=== PATIENT | male | born 1965 | race Caucasian/White ===

== ENCOUNTER 2017-03-05 16:39 | Inpatient (IN) | payer OTHER ==
[~2017-03-05] VITALS: Ht 198.1 cm; Wt 90.0 kg
--- OUTSIDE RECORDS SUMMARY | 2017-03-05 16:43 | XMS REPORT | Continuity of Care Document ---
Author Author [facility] Address Unknown Phone Unavailable Allergies Medications Problems Date Dx Coded Attending Type Code Diagnosis Diagnosed By 06/24/2013 KATELYN NEWELL MD V70.5 PREEMPLOYMENT/PRESCHOOL EXAM Procedures Code [place] [id number] UA LONG DIP 06/24 Results Encounters ACCT No. Visit Date/Time Discharge Status Pt. Type Provider Facility Loc./Unit Complaint [id number] 06/24/2013 08:28:00 06/24/2013 23: 59:59 CLS Outpatient KATELYN NEWELL MD
[2017-03-05] MEDS ORDERED: RIVA15TA PO (17:28)
[2017-03-05] MEDS ORDERED: ENAL20TA PO (17:28)
[2017-03-05 18:00] VITALS: BP 164/80
[2017-03-05] MEDS ORDERED: ACETAMINOPHEN 500 MG TAB (TYLENOL) PO PRN (18:15)
[2017-03-05] MEDS: RIVAROXABAN 15 MG TABLET (XARELTO) PO SCH (19:34)
[2017-03-05] MEDS ORDERED: RIVAROXABAN 20 MG TABLET (XARELTO) PO SCH (21:00)
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
[2017-03-06 06:01] VITALS: BP 117/69
[2017-03-06] MEDS: RIVAROXABAN 15 MG TABLET (XARELTO) PO SCH ×2 (07:57→16:44)
[2017-03-06] MEDS: ENALAPRIL 10 MG (VASOTEC) TAB PO SCH (07:58)
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
[2017-03-06] MEDS: NICOTINE PATCH REMOVAL TP SCH (08:56)
[2017-03-06] MEDS: NICOTINE 21 MG (NICODERM) PATCH TD SCH (08:56)
--- NOTE | 2017-03-06 10:22 | PM&R Post Admission Assessment ---
Post Admission Physician Asses The preadmission screen agrees with the post admission assessment that the patient is a good candidate for inpatient rehabilitation. The patient will have a comprehensive program of inpatient rehabilitation with a goal of maximizing level of functional independence prior to discharge home with [facility]. The patient will have PT/OT ninety minutes per day, each discipline , five days a week for gait, strengthening, conditioning, balance, ADLs, any patient/family/caregiver training as necessary. Speech therapy to do cognitive assessment and treat as indicated. Rehabilitation nursing to assist with bowel, bladder, skin, wound care, medication administration, pain management. Arch Pad Cementer to assist with discharge planning, community reentry. SCD's for DVT prophylaxis. He appears to be well motivated to participate in three hours of therapy a day. He should be able to tolerate three hours of therapy a day from a medical standpoint. He should benefit from the three hours of therapy a day. He has a reasonable discharge plan, reasonable discharge rehabilitation goals and a supportive family. He has various comorbidities that need to be closely monitored with medications and treatments adjusted on a daily basis as needed. These include: HTN Smoking cessation DVT RT leg on OAC Barriers to discharge for this patient who had been independent prior to this are for him to be modified independent to supervision for ADLs and mobility skills prior to discharge home with HHC and family, so as to lessen the burden of the caregivers. Risks for this patient include: 1. Fall 2. Fracture 3. DVT 4. Pulmonary embolism 5. Recurrent DVT 6. Skin breakdown 7. Contractures 8. Poorly controlled pain 9. Urinary retention 10. UTI 11. Respiratory infection 12. Aspiration 13. Poorly controlled HTN Estimated Length of Stay: 7 days Prognosis: Rehab prognosis appears good for goal of discharge home with HHC and family modified independent to supervision for ADLs and mobility skills. DYLAN OVERTON MD Mar 06, 2017 10:22
[2017-03-06] MEDS ORDERED: RIVA15TA PO (10:33)
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
--- NOTE | 2017-03-06 13:17 | ST Cognitive Linguistic Eval ---
Speech Evaluation-General Medical Diagnosis pelvic fx Onset Date: Mar 05, 2017 Therapy Diagnosis Therapy Diagnosis: Cognitive Linguistic Skills WNL Precautions Precautions/Isolations: Fall Prevention, Standard Precautions Referral Referring Physician: Dr. Juan Alberto Willis Reason for Referral: Evaluation/Treatment Cognitive Evaluation Medical History Pertinent Medical History: HTN, Smoking Reviewed History: Yes Social History Current Living Status: Alone Speech PLF-Current Status Prior Level of Function The patient denied challenges with his cogition, speech, or language. Subjective The patient was recently admitted to [facility] with a diagnosis of a pelvic fracture. The patient greeted the clinician appropriately and was agreeable to participation in the cognitive evaluation. Language Eval: Auditory Comprehends Simple Yes/No Ques: Functional Indent/Objects Multiple Samuel: Functional Ident/Pics in Multiple Samuel: Functional Follows 1-Step Commands: Functional Follows Complex Directions: Functional Follows General Conversations: Functional Language Eval: Verbal Language Completes Spontaneous Greeting: Functional Produces Auto, Serial Info: Functional Imitates Simple Words/Phrases: Functional Word Finding: Functional Requests Basic Needs: Functional States Basic Personal Info: Functional Expresses Complex Ideas: Functional Cognitive Patient Orientation The patient was independently oriented to month, day of week, date, and year. Objective Cognitive Domain Attention: WNL Memory: WNL Problem Solving: Functional Executive Functions: WNL Objective Impression The patient displayed cognitive linguistic skills within normal limits and appropriate for completion of ADL's. Communication/Social Cognition Comprehension: 6 Expression: 7 Social Interaction: 7 Problem Solvin Memory: 6 Speech Patient Assess Expression of Ideas/Wants: Expression (4) Understanding [place] Content: Understands (4) Brief Interview-Mental Status: Yes Repetition of Three Words: Three (3) Temporal Orientation: Year: Correct (3) Temporal Orientation: Month: Accurate within 5 days(2) Temporal Orientation: Day: Correct (1) Recall : Wear to say "Sock": Yes,after cueing (1) Recall : Color: Yes, no cue required (2) Recall : Bed: Yes, no cue required (2) Speech-Plan Treatment Plan Speech Therapy Treatment Plan: Discontinue ST Evaluation, only. Frequency: Modified Program (IRF) (Evaluation, only.) Estimated Hrs Per Day: Other (Evaluation, only.) Rehab Potential: Good Safety Risks/Education Teaching Recipient: Patient Teaching Methods: Discussion Response to Teaching: Verbalize Understanding Education Topics Provided: Plan of Care, Results, Recommendations Time Speech Therapy Time In: 09:00 Speech Therapy Time Out: 09:15 Total Billed Time: 15 Billed Treatment Time 1, MELYSSA LE Mar 06, 2017 13:16
--- NOTE | 2017-03-06 15:13 | Physical Therapy Daily Note ---
PT Daily Note-Current Subjective Patient agrees to PT. No c/o. Pain Numeric Pain Scale: 2 Location: Right Location Body Site: Pelvic Pain Description: Ache, Pressure Mental Status Patient Orientation: Normal For Age Transfers Functional [place] Measure 0=Not Assessed/NA 4=Minimal Assistance 1=Total Assistance 5=Supervision or Setup 2=Maximal Assistance 6=Modified [place] 3=Moderate Assistance 7=Complete IndependenceIRFPAI Quality Coding Scale 6 Independent with activity with or without an assistive device 5 Patient requires set up or clean up by helper. Patient completes activity by themselves 4 Supervision or touching assist (CGA). [place] provide cues , steadying assist 3 The helper provides less than half the effort to complete the activity 2 The helper provides more than half the effort to complete the activity 1 Dependent. The helper does all the effort to complete an activity 7 Patient refused to complete or attempt activity 9 The patient did not perform the activity before the current illness or injury 88 Not attempted due to Medical conditions or safety concerns Transfers (B, C, W/C) (FIM): 5 Scootin Rollin Roll Left to Right (QC): 4 Supine to/from Sit: 5 Sit to/from Stand: 5 Sit to Lying (QC): 4 Sit to Stand (QC): 4 Weight Bearing Right Lower Extremity: Right Weight Bearing/Tolerated Gait Training Does the Patient Walk?: Yes Gait (FIM): 5 Distance (FIM): 3=150 ft Distance: 300' x 2; 150' x 2 Walk 10 feet (QC): 4 Walk 50 ft with 2 Turns(QC): 4 Walk 150 ft (QC): 4 Walking 10ft/uneven surface-QC: 4 Gait Level of Assist: 5 Gait Assistive Device: FWW slow, functional, reciprocal gait sequence on all terrain, inside and outside. Assessment Current Status: Excellent Progress PT Short Term Goals Short Term Goals Time Frame: Mar 13, 2017 Transfers (B,C,W/C) (FIM): 6 Gait (FIM): 6 Distance (FIM): 3=150 ft Gait Distance Comment: 300' Gait Level of Assist: 6 Gait Assistive Device: FWW Stairs (FIM): 5 # of Steps: 12 Stairs Level of Assist: 5 PT Tableau Analyst Goals Long-Term Goals PT Long-Term Goals Time Frame: Mar 20, 2017 Rollin Does the Patient Walk: Yes Distance: 500' Gait Level of Assist: 7 Gait Assistive Device: None Stairs (FIM): 6 # of Steps: 12 1 Step (curb) (QC): 6 4 Steps (QC): 6 12 Steps (QC): 6 Stairs Level Of Assist: 6 Picking up an Object (QC): 6 PT Plan Treatment/Plan Treatment Plan: Continue Plan of Care Treatment Plan: Bed Mobility, Concurrent Therapy, Education, Functional Activity Timmy, Functional Strength, Group Therapy, Gait, Safety, Therapeutic Exercise, Transfers Treatment Duration: Mar 27, 2017 Frequency: At least 5 of 7 days/Wk (IRF) Estimated Hrs Per Day: 1.5 hours per day Patient and/or Family Agrees t: Yes Time/GCodes Time In: 1440 Time Out: 1510 Total Billed Treatment Time: 30 Total Billed Treatment 1 visit GT x 2 30 min GALLO ZARATE PT Mar 06, 2017 15:13
--- NOTE | 2017-03-06 15:36 | Individualized Plan of Care ---
Individualized Plan of Care Rehab Nursing IPOC Order Admission Date Mar 05, 2017 at 16:39 Current Orders Orders Influenza Vac Order Indicated (03/05/17 17:09) Ambulate TID (03/05/17 17:18) Dvt/Vte Risk - Notifiy Physici (03/05/17 17:18) Heart Healthy (03/05/17 Dinner) Admission-Acute Rehab Unit (03/05/17 17:48) Admission-Acute Rehab Unit (03/05/17 18:04) Strategy Associate-Inpt Rehab (03/05/17 18:04) Rehab Nursing Orders-Ipoc (03/05/17 18:04) Physical Therapy Rehab Orders (03/05/17 18:04) Occupational Therapy Rehab Ord (03/05/17 18:04) Speech Therapy Rehab Orders (03/05/17 18:04) Turn And Reposition Q2HR (03/05/17 18:04) Intake & Output 06,14,22 (03/05/17 18:04) Weight Bearing Status (03/05/17 18:04) Precautions (Aru) (03/05/17 18:04) Weekly Weight (Lbs) WEEK (03/05/17 18:04) Rivaroxaban Tablet (Xarelto Tablet) (03/05/17 21:00) Enalapril Tablet (Vasotec Tablet) (03/06/17 09:00) Acetaminophen Tablet (Tylenol Tablet) (03/05/17 18:15) Consult Physician (03/05/17 18:13) Rivaroxaban Tablet (Xarelto Tablet) (03/05/17 18:30) Comprehensive Metabolic Panel (03/07/17 06:00) Cbc With Automated Diff (03/07/17 06:00) Nicotine Patch (Nicoderm Patch) (03/06/17 09:00) Patch Removal (Patch Removal) (03/06/17 08:59) Patient Visit (03/06/17 ) Speech Sound Lang Comp (03/06/17 ) Patient Visit (03/06/17 ) Pt Eval Low Complexity (03/06/17 ) Exercise Therap, Ea 15 Min (03/06/17 ) Gait Training, Ea 15 Min (03/06/17 ) Patient Visit (03/06/17 ) Gait Training, Ea 15 Min (03/06/17 ) Influenza Trivalent [id number] (Afluria (03/09/17 07:30) Rehab Nursing Orders: Diseage Management, Edu in Press Rel Techn, Hydration Management, Nutrition Management, Pain Management Other Nursing Orders: Monitor for any urinary retention or constipation Intensity of Therapy to be met Patient to be seen: Min.3h per day/5 of 7d PT IPOC Problem List: Activity Tolerance, Functional Strength, Safety, Balance, Gait, Transfer, Bed Mobility, ROM Treatment Plan: Continue Plan of Care Bed Mobility, Concurrent Therapy, Education, Functional Activity Timmy, Functional Strength, Group Therapy, Gait, Safety, Therapeutic Exercise, Transfers Treatment Duration: Mar 27, 2017 Frequency: At least 5 of 7 days/Wk (IRF) Estimated Hrs Per Day: 1.5 hours per day OT IPOC Problems: Decreased Activ Tolerance, Dependent Transfers, Impaired Bed Mobility , Impaired Coordination, Impaired Funct Balance, Impaired I ADL's, Impaired Self -Care Skills OT Treatment, Training and Edu: Yes Plan of Care: ADL Retraining, Concurrent Therapy, Functional Mobility, Group Exercise/Act as Ind, UE Funct Exercise/Act Treatment Duration: Mar 27, 2017 Frequency: 5 times per week Estimated Hrs Per Day: 1.[address] IPOC Speech Therapy Treatment Plan: Discontinue ST Treatment Duration: Mar 06, 2017 Frequency: Modified Program (IRF) (Evaluation, only.) Estimated Hrs Per Day: Other (Evaluation, only.) Strategy Associate/Case Mgmt Strategy Associate/Case Managemen: Discharge Planning, Patient/Family Counseling Physician IPOC Medical Issues being managed closely and that require the 24 hour availability of a physician: DVT rt leg Smoking cessation HTN Medical Issues: Bowel/Bladder Function, DVT Prophylaxis, Falls Precautions, Infection Protection, Pain Management, Other (List) (as per above) Brief Synthesis of Preadmission Screen, Post-Admission Evaluation, and Therapy Evaluations: 51 yo male who sustained a work related RT Pelvic frx treated nonsurgically at an OSH with WBAT who is referred to this IRU for ongoing care and therapies Currently on a nicotine patch for smoking cessation Continues on home med for HTN Now on Xeralto for DVT found at OSH behind rt knee. Medical Prognosis: good Anticipated Length of Stay: 03-27-17 Rehab Goals Modified Independent for adls and mobility skills Anticipated discharge destinat: Home with family and [facility] DYLAN OVERTON MD Mar 06, 2017 15:36
--- NOTE | 2017-03-06 15:42 | PM & R (SOAP) Progress Note ---
Subjective Time Seen by Provider: 08:25 Subjective/Events-last exam Patient was seen in his room this AM Patient min assist for transfers Patient adjusting well to unit,Case discussed with staff Objective Exam Last Set of Vital Signs Vital Signs Date Time Temp Pulse Resp B/P (MAP) Pulse Ox O2 Delivery O2 Flow Rate FiO2 03/06/17 08:07 Room Air 03/06/17 06:01 97.6 61 18 117/69 95 Capillary Refill : Less Than 3 Seconds I&O Intake and Output 03/07/17 00:00 Intake Total 300 ml Balance 300 ml Intake Oral 300 ml # Voids 2 General: Alert, Oriented X3, Cooperative, No Acute Distress HEENT: Atraumatic, PERRLA, EOMI, Mucous Memb Moist/[place] Neck: Supple, No JVD Lungs: Clear to Auscultation Heart: Regular Rate Abdomen: Normal Bowel Sounds, Soft, No Tenderness Extremities: No Edema Neuro: Other (Tenderness rt hip with impaired strength Normal strength otherwise) Assessment/Plan Assessment Rt Pelvic FRX managed nonsurgically WBAT RLE work related DVT RT leg on xeralto HTN controlled with medication Tobaccoism currently on patch Plan Continue PT/OT ST has signed off Appreciate DR de los santos note Check Labs DYLAN OVERTON MD Mar 06, 2017 15:42
--- NOTE | 2017-03-06 15:58 | Occupational Therapy Eval ---
OT Evaluation-General/PLF Medical Diagnosis Admission Date Mar 05, 2017 at 16:39 Medical Diagnosis: pelvic fx Onset Date: Feb 28, 2017 Therapy Diagnosis Therapy Diagnosis: decr self care, decr funct mobility, decr strength Height/Weight Height (Feet): 6 Height (Inches): 6.00 Weight (Pounds): 198 Weight (Ounces): 8.0 Precautions Precautions/Isolations: Fall Prevention, Standard Precautions Weight Bear Status Weight Bearing Restriction: Weight Bearing/Tolerated Location Restriction: R LE Referral Physician: Lazaro Referral Reason: Evaluation/Treatment Medical History Pertinent Medical History: HTN, Smoking Additional Medical History Glaucoma, bilat cataract surgery. Current History Crushed by livestock, with R pelvic fx (pt reported 8 fx). Complicated by blood clots behind R knee. Treating fx conservatively. Reviewed History: Yes Social History Home: Multilevel (does not go upstairs) Current Living Status: Alone Entry Into Home: Ramp (friends are building ramp), Stairs With Railing Steps Into Home: 3 ADL-Prior Level of Function ADL PLOF Comments Pt reported that he managed all of his basic ADLs prior to accident. 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 DME/Equipment: Bath Chair, Reachers, Sock Aid, Tall Toilet, Tub (clawfoot), Toilet/Riser DME/Equipment Comments He reported that he has or will have toilet riser with arms, shower chair, bilingual instructor, sock aid, FWW. He has friends who are installing a shower in his bathroom Occupation: livestock Drive Self: Yes OT Current Status Subjective Pt seen in room, up in bed, agreeable to OT. Pain reported 1/10 when in bed and up to 4/10 when walking. Appearance Alert, cooperative Mental Status/Objective Patient Orientation: Person, Place, Time, Situation Current Glasses/Contacts: Yes (reading) Hearing Aids: No Dentures/Partials: Yes (upper and lwoer) Hand Dominance: Left Upper Extremity ROM Grossly WFL bilat Upper Extremity Coordination WFL Upper Extremity Sensation WFL Upper Extremity Strength Grossly 5/5 bilat ADL-Treatment Functional [place] Measure 0=Not Assessed/NA 4=Minimal Assistance 1=Total Assistance 5=Supervision or Setup 2=Maximal Assistance 6=Modified [place] 3=Moderate Assistance 7=Complete IndependenceIRFPAI Quality Coding Scale 6 Independent with activity with or without an assistive device 5 Patient requires set up or clean up by helper. Patient completes activity by themselves 4 Supervision or touching assist (CGA). [place] provide cues , steadying assist 3 The helper provides less than half the effort to complete the activity 2 The helper provides more than half the effort to complete the activity 1 Dependent. The helper does all the effort to complete an activity 7 Patient refused to complete or attempt activity 9 The patient did not perform the activity before the current illness or injury 88 Not attempted due to Medical conditions or safety concerns Eating (FIM): 6 (Pt reported that he is able to cut up his own food and has no difficulies feeding himself. he does not eat food without his dentures and leaves them in all the time except when cleaning them. ) Eating (QC): 6 Bathing (FIM): 5 (Pt washed and dried all parts, using shower bench, grab bars , hand held shower. Setup) Shower/Bathe Self (QC): 5 Upper Body Dressing (FIM): 5 (Doffed and donned clothing with setup) Upper Body Dressing (QC): 5 Lower Body Dressing (FIM): 5 (Doffed and donned socks and pants with setup, supervision when standing, FWW. Pt educ use of dressing stick to doff socks and sock aid to don them. Pt educ modified techniques) Lower Body Dressing (QC): 4 On/Off Footwear (QC): 5 Transfers (B, C, W/C) (FIM): 5 (Pt educ hand placement when getting up off bed to walk CGA, FWW to bathroom) Shower Transfer (FIM): 4 (CGA, on and off shower bench, grab bars, FWW) After ADLs, pt left sitting EOB and care transferred to PT. Education OT Patient Education: Modified ADL techniques, Purpose of tx/functional activities, Rehab process, Transfer techniques, Use of adapted equipment Teaching Recipient: Patient Teaching Methods: Demonstration, Discussion Response to Teaching: Verbalize Understanding, Return Demonstration OT Short Term Goals Short Term Goals Shower Transfer(FIM): 5 1=Demonstrate adherence to instructed precautions during ADL tasks. 2=Patient will verbalize/demonstrate understanding of assistive devices/ modifications for ADL. 3=Patient will improve strength/tolerance for activity to enable patient to perform ADL's. OT Group Home Goals Remedial Project Manager Goals Time Frame: Mar 14, 2017 Eating (FIM): 6 Eating (QC): 6 Groomin Oral Hygiene (QC): 6 Bathing(FIM): 6 Shower/Bathe Self (QC): 6 Upper Body Dressing(FIM): 6 Upper Body Dressing (QC): 6 Lower Body Dressing(FIM): 6 Lower Body Dressing (QC): 6 On/Off Footwear (QC): 6 Toileting(FIM): 6 Toileting Hygiene (QC): 6 Toilet/Commode Transfer(FIM): 6 Toilet/Commode Transfer (QC): 6 Shower Transfer(FIM): 6 Additional Goals: 1-Demonstrate ADL Tasks, 2-Verbalize Understanding, 3- ImproveStrength/Timmy 1=Demonstrate adherence to instructed precautions during ADL tasks. 2=Patient will verbalize/demonstrate understanding of assistive devices/ modifications for ADL. 3=Patient will improve strength/tolerance for activity to enable patient to perform ADL's. OT Education/Plan Problem List/Assessment Assessment: Decreased UE Strength (for weight bearing needs), Dependent Transfers, Impaired Funct Balance, Impaired Self-Care Skills Pt would benefit from skilled OT to increase his independence in basic self care to allow him to safely return to his home to live alone Discharge Recommendations Plan/Recommendations: Continue POC Treatment Plan/Plan of Care Treatment,Training & Education: Yes Patient would benefit from OT for education, treatment and training to promote independence in ADL's, mobility, safety and/or upper extremity function for ADL' s. Plan of Care: ADL Retraining, Functional Mobility, Group Exercise/Act as Ind ( education, exercise, funct mobility, socialization, activity tolerance), UE Funct Exercise/Act, UE Neuromus Re-Ed/Coord Treatment Duration: Mar 14, 2017 Frequency: At least 5 of 7 days/Wk (IRF) Estimated Hrs Per Day: 1.5 hours per day Agreement: Yes Rehab Potential: Good Time/GCodes Start Time: 10:00 Stop Time: 11:00 Total Time Billed (hr/min): 60 Billed Treatment Time visit, 30 minutes evaluation moderate intensity, 30 minutes ADL ZULAY MARAVILLA OT Mar 06, 2017 15:58
--- NOTE | 2017-03-06 16:17 | Occupational Ther Daily Note ---
OT Current Status-Daily Note Subjective Pt seen in room, up in bed, agreeable to OT. No pain mentioned although pt reported that he was tired from therapy this morning. Mental Status/Objective Functional [place] Measure 0=Not Assessed/NA 4=Minimal Assistance 1=Total Assistance 5=Supervision or Setup 2=Maximal Assistance 6=Modified [place] 3=Moderate Assistance 7=Complete [place] ADL-Treatment Pt did not need assistance to swing legs over EOB to get up. Pt recalled technique for hand placement for transfer from this AM. Walked SBA for safety, FWW to bathroom and then to gym. Functional [place] Measure 0=Not Assessed/NA 4=Minimal Assistance 1=Total Assistance 5=Supervision or Setup 2=Maximal Assistance 6=Modified [place] 3=Moderate Assistance 7=Complete IndependenceIRFPAI Quality Coding Scale 6 Independent with activity with or without an assistive device 5 Patient requires set up or clean up by helper. Patient completes activity by themselves 4 Supervision or touching assist (CGA). [place] provide cues , steadying assist 3 The helper provides less than half the effort to complete the activity 2 The helper provides more than half the effort to complete the activity 1 Dependent. The helper does all the effort to complete an activity 7 Patient refused to complete or attempt activity 9 The patient did not perform the activity before the current illness or injury 88 Not attempted due to Medical conditions or safety concerns Grooming (FIM): 5 (SBA to clean dentures at sink, to wash hands (washed face during shower), FWW. Chooses not to shave today, pending getting an electric razor. Pt educ walker placement for safety) Oral Hygiene (QC): 4 (SBA standing at sink, FWW) Toileting (FIM): 5 (Pt stood SBA, FWW at BS over toilet to urinate. Able to manage hygiene and clothing. Also used grab bar) Toileting Hygiene (QC): 4 (SBA) Toilet/Commode Transfer (FIM): 5 (SBA on and off BSC over toilet, grab bars, FWW.) Toilet Transfer (QC): 4 (SBA) Other Treatment Pt able to get on/off chair with [place] with SBA. Pt did 8 minutes bilat UE exercise with arm bike set at 25W resistance, to strengthen arms for helping with weight bearing R UE when standing and walking during ADLs. Pt reported "I sweated a little" with exercise. Care transferred to PT. Education OT Patient Education: Exercise program, Modified ADL techniques, Transfer techniques Teaching Recipient: Patient Teaching Methods: Demonstration, Discussion Response to Teaching: Return Demonstration OT Short Term Goals Short Term Goals Shower Transfer(FIM): 5 1=Demonstrate adherence to instructed precautions during ADL tasks. 2=Patient will verbalize/demonstrate understanding of assistive devices/ modifications for ADL. 3=Patient will improve strength/tolerance for activity to enable patient to perform ADL's. OT Nursing Home Goals Nursing Home Goals Time Frame: Mar 14, 2017 Eating (FIM): 6 Eating (QC): 6 Groomin Oral Hygiene (QC): 6 Bathing(FIM): 6 Shower/Bathe Self (QC): 6 Upper Body Dressing(FIM): 6 Upper Body Dressing (QC): 6 Lower Body Dressing(FIM): 6 Lower Body Dressing (QC): 6 On/Off Footwear (QC): 6 Toileting(FIM): 6 Toileting Hygiene (QC): 6 Toilet/Commode Transfer(FIM): 6 Toilet/Commode Transfer (QC): 6 Shower Transfer(FIM): 6 Additional Goals: 1-Demonstrate ADL Tasks, 2-Verbalize Understanding, 3- ImproveStrength/Timmy 1=Demonstrate adherence to instructed precautions during ADL tasks. 2=Patient will verbalize/demonstrate understanding of assistive devices/ modifications for ADL. 3=Patient will improve strength/tolerance for activity to enable patient to perform ADL's. OT Education/Plan Problem List/Assessment Pt would benefit from skilled OT to increase his independence in basic self care to allow him to safely return to his home to live alone Discharge Recommendations Plan/Recommendations: Continue POC Treatment Plan/Plan of Care Patient would benefit from OT for education, treatment and training to promote independence in ADL's, mobility, safety and/or upper extremity function for ADL' s. Plan of Care: ADL Retraining, Functional Mobility, Group Exercise/Act as Ind ( education, exercise, funct mobility, socialization, activity tolerance), UE Funct Exercise/Act, UE Neuromus Re-Ed/Coord Treatment Duration: Mar 14, 2017 Frequency: At least 5 of 7 days/Wk (IRF) Estimated Hrs Per Day: 1.5 hours per day Agreement: Yes Rehab Potential: Good Time/GCodes Start Time: 14:00 Stop Time: 14:30 Total Time Billed (hr/min): 30 Billed Treatment Time visit, 15 minutes ADL, 15 minutes exercise ZULAY MARAVILLA OT Mar 06, 2017 16:17
[2017-03-06 17:02] VITALS: BP 130/80
[2017-03-07 05:00] VITALS: BP 116/64
[2017-03-07 05:43] LABS: BASOPHILS # (AUTO) 0.1 10^3/uL (0.0-0.1); BASOPHILS % (AUTO) 1 % (0-10); EOSINOPHILS # (AUTO) 0.5 10^3/uL (0.0-0.3); EOSINOPHILS % (AUTO) 6 % (0-10); LYMPHOCYTES # (AUTO) 2.6 X 10^3 (1.0-4.0); LYMPHOCYTES % (AUTO) 35 % (12-44); MEAN CORPUSCULAR HEMOGLOBIN 29 PG (25-34); MEAN CORPUSCULAR HGB CONC 34 G/DL (32-36); MEAN CORPUSCULAR VOLUME 87 FL (80-99); MEAN PLATELET VOLUME 9.2 FL (7.4-10.4); MONOCYTES # (AUTO) 0.9 X 10^3 (0.0-1.0); MONOCYTES % (AUTO) 12 % (0-12); NEUTROPHILS # (AUTO) 3.5 X 10^3 (1.8-7.8); NEUTROPHILS % (AUTO) 46 % (42-75); PLATELET COUNT 242 10^3/uL (130-400); RED BLOOD COUNT 4.97 10^6/uL (4.35-5.85); RED CELL DISTRIBUTION WIDTH 13.4 % (10.0-14.5); WHITE BLOOD COUNT 7.5 10^3/uL (4.3-11.0)
[2017-03-07 06:06] LABS: ALANINE AMINOTRANSFERASE 83 U/L (0-55); ALBUMIN 3.7 GM/DL (3.2-4.5); ANION GAP 9 MMOL/L (5-14); ASPARTATE AMINO TRANSFERASE 69 U/L (5-34); BILIRUBIN,TOTAL 0.7 MG/DL (0.1-1.0); BLOOD UREA NITROGEN 17 MG/DL (7-18); BUN/CREATININE RATIO 20; CARBON DIOXIDE 27 MMOL/L (21-32); CHLORIDE 104 MMOL/L (98-107); CREATININE SERUM 0.85 MG/DL (0.60-1.30); GFR ESTIMATED > 60; GLUCOSE 109 MG/DL (70-105); POTASSIUM 3.9 MMOL/L (3.6-5.0); SODIUM 140 MMOL/L (135-145)
[2017-03-07] MEDS: RIVAROXABAN 15 MG TABLET (XARELTO) PO SCH ×2 (06:22→16:13)
--- NOTE | 2017-03-07 08:01 | Progress Note (SOAP) ---
Subjective Time Seen by Provider: 07:35 Subjective/Events-last exam pelvic fracture. Elevated liver tests. DVT. Chest pain noncardiac. Patient doing well. Patient walked well yesterday Objective Exam Vital Signs Date Time Temp Pulse Resp B/P (MAP) Pulse Ox O2 Delivery O2 Flow Rate FiO2 03/07/17 05:00 96.6 58 18 116/64 94 Room Air 03/06/17 20:00 Room Air 03/06/17 17:02 98.8 69 18 130/80 96 Room Air 03/06/17 08:07 Room Air Capillary Refill : Less Than 3 Seconds General Appearance: No Apparent Distress, WD/WN HEENT: Normal ENT Inspection Neck: Full Range of Motion Respiratory: Chest Non Tender, Normal Breath Sounds, No Accessory Muscle Use, No Respiratory Distress Cardiovascular: Regular Rate, Rhythm, No Murmur Results Lab Laboratory Tests 03/07/17 05:05: White Blood Count 7.5, Red Blood Count 4.97, Hemoglobin 14.6, Hematocrit 43, Mean Corpuscular Volume 87, Mean Corpuscular Hemoglobin 29, Mean Corpuscular Hemoglobin Concent 34, Red Cell Distribution Width 13.4, Platelet Count 242, Mean Platelet Volume 9.2, Neutrophils (%) (Auto) 46, Lymphocytes (%) (Auto) 35, Monocytes (%) (Auto) 12, Eosinophils (%) (Auto) 6, Basophils (%) (Auto) 1, Neutrophils # (Auto) 3.5, Lymphocytes # (Auto) 2.6, Monocytes # (Auto) 0.9, Eosinophils # (Auto) 0.5H, Basophils # (Auto) 0.1, Sodium Level 140, Potassium Level 3.9, Chloride Level 104, Carbon Dioxide Level 27, Anion Gap 9, Blood Urea Nitrogen 17, Creatinine 0.85, Estimat Glomerular Filtration Rate > 60, BUN/ Creatinine Ratio 20, Glucose Level 109H, Calcium Level 9.0, Total Bilirubin 0.7 , Aspartate Amino Transf (AST/SGOT) 69H, Alanine Aminotransferase (ALT/SGPT) 83H , Alkaline Phosphatase 71, Total Protein 7.0, Albumin 3.7 Assessment/Plan Assessment/Plan Assess & Plan/Chief Complaint pelvic fracture. DVT. Chest pain noncardiac. Hypertension. . 03/07/17. Pelvic fracture. DVT. Hypertension. Chest pain noncardiac. Elevated liver tests. Patient feeling well and not complaining of any pain. Patient trying hard Clinical Quality Measures DVT/VTE Risk/Contraindication: Risk Factor Score Per Nursin RFS Level Per Nursing on Admit: 4+=Very High ANNEL GRIFFIN DO Mar 07, 2017 08:01
[2017-03-07] MEDS: ENALAPRIL 10 MG (VASOTEC) TAB PO SCH (08:10)
[2017-03-07] MEDS: NICOTINE PATCH REMOVAL TP SCH (08:10)
[2017-03-07] MEDS: NICOTINE 21 MG (NICODERM) PATCH TD SCH (08:10)
--- NOTE | 2017-03-07 09:27 | PM & R (SOAP) Progress Note ---
Subjective Time Seen by Provider: 08:15 Subjective/Events-last exam Patient was seen in his room this AM Patient Min assist for transfers Progressing well with therapies Objective Exam Last Set of Vital Signs Vital Signs Date Time Temp Pulse Resp B/P (MAP) Pulse Ox O2 Delivery O2 Flow Rate FiO2 03/07/17 05:00 96.6 58 18 116/64 94 Room Air Capillary Refill : Less Than 3 Seconds I&O Intake and Output 03/08/17 00:00 Intake Total 600 ml Balance 600 ml Intake Oral 600 ml # Voids 2 General: Alert, Oriented X3, Cooperative, No Acute Distress HEENT: Atraumatic, PERRLA, EOMI, Mucous Memb Moist/[place] Neck: Supple, No JVD Lungs: Clear to Auscultation Heart: Regular Rate Abdomen: Normal Bowel Sounds, Soft, No Tenderness Extremities: No Edema Neuro: Other (Tenderness rt hip with impaired strength Normal strength otherwise) Results Lab Laboratory Tests 03/07/17 05:05: White Blood Count 7.5, Red Blood Count 4.97, Hemoglobin 14.6, Hematocrit 43, Mean Corpuscular Volume 87, Mean Corpuscular Hemoglobin 29, Mean Corpuscular Hemoglobin Concent 34, Red Cell Distribution Width 13.4, Platelet Count 242, Mean Platelet Volume 9.2, Neutrophils (%) (Auto) 46, Lymphocytes (%) (Auto) 35, Monocytes (%) (Auto) 12, Eosinophils (%) (Auto) 6, Basophils (%) (Auto) 1, Neutrophils # (Auto) 3.5, Lymphocytes # (Auto) 2.6, Monocytes # (Auto) 0.9, Eosinophils # (Auto) 0.5H, Basophils # (Auto) 0.1, Sodium Level 140, Potassium Level 3.9, Chloride Level 104, Carbon Dioxide Level 27, Anion Gap 9, Blood Urea Nitrogen 17, Creatinine 0.85, Estimat Glomerular Filtration Rate > 60, BUN/ Creatinine Ratio 20, Glucose Level 109H, Calcium Level 9.0, Total Bilirubin 0.7 , Aspartate Amino Transf (AST/SGOT) 69H, Alanine Aminotransferase (ALT/SGPT) 83H , Alkaline Phosphatase 71, Total Protein 7.0, Albumin 3.7 Assessment/Plan Assessment Rt Pelvic FRX managed nonsurgically WBAT RLE work related DVT RT leg on xeralto HTN controlled with medication Tobaccoism currently on patch Plan Continue PT/OT ST has signed off Appreciate DR de los santos note Current Labs noted DYLAN OVERTON MD Mar 07, 2017 09:27
--- NOTE | 2017-03-07 10:53 | Occupational Ther Daily Note ---
OT Current Status-Daily Note Subjective Pt seen in room, up in bed, agreeable to OT. Pain rated 2/10 and not described. Appearance Alert, cooperative Mental Status/Objective Patient Orientation: Person, Place, Time, Situation Functional [place] Measure 0=Not Assessed/NA 4=Minimal Assistance 1=Total Assistance 5=Supervision or Setup 2=Maximal Assistance 6=Modified [place] 3=Moderate Assistance 7=Complete [place] ADL-Treatment Pt was able to get up and down from EOB without assistance and with no LOB. walked safely into bathroom for ADLs, stood at sink to groom and walked safely to gym with FWW, with no LOB observed. Functional [place] Measure 0=Not Assessed/NA 4=Minimal Assistance 1=Total Assistance 5=Supervision or Setup 2=Maximal Assistance 6=Modified [place] 3=Moderate Assistance 7=Complete IndependenceIRFPAI Quality Coding Scale 6 Independent with activity with or without an assistive device 5 Patient requires set up or clean up by helper. Patient completes activity by themselves 4 Supervision or touching assist (CGA). [place] provide cues , steadying assist 3 The helper provides less than half the effort to complete the activity 2 The helper provides more than half the effort to complete the activity 1 Dependent. The helper does all the effort to complete an activity 7 Patient refused to complete or attempt activity 9 The patient did not perform the activity before the current illness or injury 88 Not attempted due to Medical conditions or safety concerns Eating (FIM): 6 (No difficulties ordering food, cutting it up, feeding himself) Eating (QC): 6 Grooming (FIM): 6 (Pt washed face and hands in shower. Safely stood at sink for 20 minutes to shave and clean his teeth, with no LOB or rest break needed, FWW. ) Oral Hygiene (QC): 6 Bathing (FIM): 6 (Washed and dried all parts with mod I. Stood safely to dry bottom. Used shower ebcnh, grab bars, hand held shower, FWW. Retrieved towels from bar and turned water on/off. ) Shower/Bathe Self (QC): 6 Upper Body (FIM): 6 (Pt got his own clothes out and put dirty ones away. He undressed and dressed without help, FWW for balance. ) Upper Body Dressing (QC): 6 Lower Body Dressing (FIM): 6 (Pt got clean clothes out and put dirty ones away. Able to get socks off with dressing stick but no AD needed to don socks and shoes, pants. FWW for balance. Able to cross legs to get shoes on and tie them.) Lower Body Dressing (QC): 6 On/Off Footwear (QC): 6 Toileting (FIM): 6 (On/off BSC over toilet, FWW (per pt report). Able to manage clothing and hygiene.) Toileting Hygiene (QC): 6 Toilet/Commode Transfer (FIM): 6 (On/off BSC over toilet, grab bar, FWW (pt report from earlier in am)) Toilet Transfer (QC): 6 Shower Transfer(FIM): 6 (On/off shower bench, grab bar, FWW) Other Treatment Pt did 9 minutes bilat UE exercise with arm bike set at 35W resistance ( increased time and resistance), with no recovery breaks. He said he was pleased with how much more he was able to do today. Exercise to help with UE strengthening to help with weight bearing while walking or during ADLs. Pt walked back to his room with FWW, no LOB and got into bed safely without help. All needs met. Education OT Patient Education: Exercise program, Modified ADL techniques, Progress toward Goal/Update tx plan, Purpose of tx/functional activities Teaching Recipient: Patient Teaching Methods: Discussion Response to Teaching: Verbalize Understanding OT Short Term Goals Short Term Goals Shower Transfer(FIM): 5 1=Demonstrate adherence to instructed precautions during ADL tasks. 2=Patient will verbalize/demonstrate understanding of assistive devices/ modifications for ADL. 3=Patient will improve strength/tolerance for activity to enable patient to perform ADL's. OT [facility] Goals [facility] Goals Time Frame: Mar 14, 2017 Eating (FIM): 6 Eating (QC): 6 Groomin Oral Hygiene (QC): 6 Bathing(FIM): 6 Shower/Bathe Self (QC): 6 Upper Body Dressing(FIM): 6 Upper Body Dressing (QC): 6 Lower Body Dressing(FIM): 6 Lower Body Dressing (QC): 6 On/Off Footwear (QC): 6 Toileting(FIM): 6 Toileting Hygiene (QC): 6 Toilet/Commode Transfer(FIM): 6 Toilet/Commode Transfer (QC): 6 Shower Transfer(FIM): 6 Additional Goals: 1-Demonstrate ADL Tasks, 2-Verbalize Understanding, 3- ImproveStrength/Timmy 1=Demonstrate adherence to instructed precautions during ADL tasks. 2=Patient will verbalize/demonstrate understanding of assistive devices/ modifications for ADL. 3=Patient will improve strength/tolerance for activity to enable patient to perform ADL's. OT Education/Plan Problem List/Assessment Pt would benefit from skilled OT to increase his independence in basic self care to allow him to safely return to his home to live alone Discharge Recommendations Plan/Recommendations: Continue POC Treatment Plan/Plan of Care Patient would benefit from OT for education, treatment and training to promote independence in ADL's, mobility, safety and/or upper extremity function for ADL' s. Plan of Care: ADL Retraining, Functional Mobility, Group Exercise/Act as Ind ( education, exercise, funct mobility, socialization, activity tolerance), UE Funct Exercise/Act, UE Neuromus Re-Ed/Coord Treatment Duration: Mar 14, 2017 Frequency: At least 5 of 7 days/Wk (IRF) Estimated Hrs Per Day: 1.5 hours per day Agreement: Yes Rehab Potential: Good Time/GCodes Start Time: 08:30 Stop Time: 09:35 Total Time Billed (hr/min): 65 Billed Treatment Time visit, 50 minutes ADL, 15 minutes exercise ZULAY MARAVILLA OT Mar 07, 2017 10:53
--- NOTE | 2017-03-07 12:32 | Physical Therapy Daily Note ---
PT Daily Note-Current Subjective Patient just complete with OT and agrees to PT. Pain Numeric Pain Scale: 3 Location: Right Location Body Site: Pelvic Pain Description: Ache, Acute Mental Status Patient Orientation: Normal For Age Transfers Functional [place] Measure 0=Not Assessed/NA 4=Minimal Assistance 1=Total Assistance 5=Supervision or Setup 2=Maximal Assistance 6=Modified [place] 3=Moderate Assistance 7=Complete IndependenceIRFPAI Quality Coding Scale 6 Independent with activity with or without an assistive device 5 Patient requires set up or clean up by helper. Patient completes activity by themselves 4 Supervision or touching assist (CGA). [place] provide cues , steadying assist 3 The helper provides less than half the effort to complete the activity 2 The helper provides more than half the effort to complete the activity 1 Dependent. The helper does all the effort to complete an activity 7 Patient refused to complete or attempt activity 9 The patient did not perform the activity before the current illness or injury 88 Not attempted due to Medical conditions or safety concerns Transfers (B, C, W/C) (FIM): 6 Scootin Rollin Roll Left to Right (QC): 6 Supine to/from Sit: 7 Sit to/from Stand: 6 Sit to Lying (QC): 6 Sit to Stand (QC): 5 Weight Bearing Right Lower Extremity: Right Weight Bearing/Tolerated Gait Training Does the Patient Walk?: Yes Gait (FIM): 6 Distance (FIM): 3=150 ft Distance: 500' x 5 Walk 10 feet (QC): 5 Walk 50 ft with 2 Turns(QC): 5 Walk 150 ft (QC): 5 Walking 10ft/uneven surface-QC: 5 Gait Level of Assist: 6 Gait Assistive Device: FWW gait training on all terrains, inside and outside, up and down incline and declines, gravel Exercises Standin way Ex=Flex, Abd, Ext Standing Reps: 20 in FWW to increase strength and ROM of bilateral hip all planes Assessment Current Status: Excellent Progress Patient is tolerating increase in activity without difficulty. Patient is progressing with treatment plan and will dismiss soon. PT Short Term Goals Short Term Goals Time Frame: Mar 13, 2017 Gait (FIM): 6 Distance (FIM): 3=150 ft Gait Distance Comment: 300' Gait Level of Assist: 6 Gait Assistive Device: FWW Stairs (FIM): 5 # of Steps: 12 Stairs Level of Assist: 5 PT Half-Way Goals Code Inspector Goals PT Half-Way Goals Time Frame: Mar 20, 2017 Transfers (B,C,W/C) (FIM): 6 Sit to Lying (QC): 6 Lying-Sitting on Side/Bed(QC): 6 Sit to Stand (QC): 6 Rollin Roll Left to Right (QC): 6 Chair/Hzm-uu-Mvtea Xfer(QC): 6 Car Transfer (QC): 6 Does the Patient Walk: Yes Gait (FIM): 6 Distance: 500' Walk 10 feet (QC): 6 Walk 10ft-Uneven Surface(QC): 6 Walk 50ft with 2 Turns (QC): 6 Walk 150 ft (QC): 6 Gait Level of Assist: 6 Gait Assistive Device: FWW Stairs (FIM): 6 # of Steps: 12 1 Step (curb) (QC): 6 4 Steps (QC): 6 12 Steps (QC): 6 Stairs Level Of Assist: 6 Picking up an Object (QC): 6 PT Plan Treatment/Plan Treatment Plan: Continue Plan of Care Treatment Plan: Bed Mobility, Concurrent Therapy, Education, Functional Activity Timmy, Functional Strength, Group Therapy, Gait, Safety, Therapeutic Exercise, Transfers Treatment Duration: Mar 27, 2017 Frequency: At least 5 of 7 days/Wk (IRF) Estimated Hrs Per Day: 1.5 hours per day Patient and/or Family Agrees t: Yes Time/GCodes Time In: 1105 Time Out: 1205 Total Billed Treatment Time: 60 Total Billed Treatment 1 visit GT x 4 60 min GALLO ZARATE PT Mar 07, 2017 12:32
--- NOTE | 2017-03-07 14:36 | Therapy Group Daily Note ---
Therapy Daily Group Note Patient Education Topic Other List Below Exercises LE Seated Exercise, UE Exercise Other/Notes Pt was an active participant in OT/PT group. He socialized appropriately and introduced himself, sharing his "rehab story". He did seated UE and LE exercises and contributed to discussion/education on memory strategies. Afterwards, he did a memory activity with the group and was able to identify strategies he uses to remember things (which may be related to health care). He walked back independently to his room with FWW, all needs met. Start Time: 13:00 Stop Time: 14:15 Total Billed Treatment Time: 75 Total Billed Treatment visit, 75 minutes group ZULAY MARAVILLA OT Mar 07, 2017 14:36
[2017-03-07 17:55] VITALS: BP 132/71
[2017-03-08 05:20] VITALS: BP 119/70
[2017-03-08] MEDS: RIVAROXABAN 15 MG TABLET (XARELTO) PO SCH ×2 (06:16→16:56)
[2017-03-08] MEDS: NICOTINE PATCH REMOVAL TP SCH (08:00)
[2017-03-08] MEDS: ENALAPRIL 10 MG (VASOTEC) TAB PO SCH (09:13)
[2017-03-08] MEDS: NICOTINE 21 MG (NICODERM) PATCH TD SCH (09:13)
[2017-03-08] MEDS ORDERED: ACET-77 PO (10:10)
[2017-03-08] MEDS ORDERED: NCT21TD TD (10:10)
[2017-03-08] MEDS ORDERED: RIVA15TA PO (10:10)
--- NOTE | 2017-03-08 10:15 | PM & R (SOAP) Progress Note ---
Subjective Time Seen by Provider: 09:00 Subjective/Events-last exam Patient has progressed well.Therapies recommend discharge today Current meds reviewed and rxs for Xeralto and Nicotine patch transmitted to patients pharmacy in [facility] Objective Exam Last Set of Vital Signs Vital Signs Date Time Temp Pulse Resp B/P (MAP) Pulse Ox O2 Delivery O2 Flow Rate FiO2 03/08/17 05:20 97.3 56 18 119/70 95 Room Air Capillary Refill : Less Than 3 Seconds I&O Intake and Output 03/08/17 23:59 Intake Total 600 ml Balance 600 ml Intake Oral 600 ml # Voids 3 General: Alert, Oriented X3, Cooperative, No Acute Distress HEENT: Atraumatic, PERRLA, EOMI, Mucous Memb Moist/[place] Neck: Supple, No JVD Lungs: Clear to Auscultation Heart: Regular Rate Abdomen: Normal Bowel Sounds, Soft, No Tenderness Extremities: No Edema Neuro: Other (Tenderness rt hip with impaired strength Normal strength otherwise) Results Lab Laboratory Tests 03/07/17 05:05: White Blood Count 7.5, Red Blood Count 4.97, Hemoglobin 14.6, Hematocrit 43, Mean Corpuscular Volume 87, Mean Corpuscular Hemoglobin 29, Mean Corpuscular Hemoglobin Concent 34, Red Cell Distribution Width 13.4, Platelet Count 242, Mean Platelet Volume 9.2, Neutrophils (%) (Auto) 46, Lymphocytes (%) (Auto) 35, Monocytes (%) (Auto) 12, Eosinophils (%) (Auto) 6, Basophils (%) (Auto) 1, Neutrophils # (Auto) 3.5, Lymphocytes # (Auto) 2.6, Monocytes # (Auto) 0.9, Eosinophils # (Auto) 0.5H, Basophils # (Auto) 0.1, Sodium Level 140, Potassium Level 3.9, Chloride Level 104, Carbon Dioxide Level 27, Anion Gap 9, Blood Urea Nitrogen 17, Creatinine 0.85, Estimat Glomerular Filtration Rate > 60, BUN/ Creatinine Ratio 20, Glucose Level 109H, Calcium Level 9.0, Total Bilirubin 0.7 , Aspartate Amino Transf (AST/SGOT) 69H, Alanine Aminotransferase (ALT/SGPT) 83H , Alkaline Phosphatase 71, Total Protein 7.0, Albumin 3.7 Assessment/Plan Assessment Rt Pelvic FRX managed nonsurgically WBAT RLE work related DVT RT leg on xeralto HTN controlled with medication Tobaccoism currently on patch Plan Discharge today to home with family F/U with PCP re DVT RT Leg See orders Continue with Nicotine patch if patient elects to continue with smoking cessation on an outpatient basis DYLAN OVERTON MD Mar 08, 2017 10:15
--- NOTE | 2017-03-08 12:13 | Physical Therapy Daily Note ---
PT Daily Note-Current Subjective Pt. states he is ready to go home . Makes great point to thank staff and is very complimentary about his care. States his pain in from 1-/10 during his Rx and he has decided not to take pain meds unless it is at 4 or over. Pain Numeric Pain Scale: 3 Location: Medial Location Body Site: Pelvic Pain Description: Ache Mental Status Patient Orientation: Normal For Age (very talkative) Transfers Functional [place] Measure 0=Not Assessed/NA 4=Minimal Assistance 1=Total Assistance 5=Supervision or Setup 2=Maximal Assistance 6=Modified [place] 3=Moderate Assistance 7=Complete IndependenceIRFPAI Quality Coding Scale 6 Independent with activity with or without an assistive device 5 Patient requires set up or clean up by helper. Patient completes activity by themselves 4 Supervision or touching assist (CGA). [place] provide cues , steadying assist 3 The helper provides less than half the effort to complete the activity 2 The helper provides more than half the effort to complete the activity 1 Dependent. The helper does all the effort to complete an activity 7 Patient refused to complete or attempt activity 9 The patient did not perform the activity before the current illness or injury 88 Not attempted due to Medical conditions or safety concerns Transfers (B, C, W/C) (FIM): 6 Scootin Rollin Roll Left to Right (QC): 6 Supine to/from Sit: 6 Sit to/from Stand: 6 Sit to Lying (QC): 6 Sit to Stand (QC): 6 Chair/Bct-gu-Jyrup Xfer(QC): 6 Bed to/from Chair: 6 Weight Bearing Right Lower Extremity: Right Weight Bearing/Tolerated Gait Training Does the Patient Walk?: Yes Gait (FIM): 6 Distance (FIM): 3=150 ft (400 ft plus) Walk 10 feet (QC): 6 Walk 50 ft with 2 Turns(QC): 6 Walk 150 ft (QC): 6 Walking 10ft/uneven surface-QC: 6 Gait Level of Assist: 6 Gait Persons Needed: 0 Gait Assistive Device: FWW slow no LOB, assymetrical step length Wheelchair Training Does the Pt Use a Wheelchair?: No Stair Training Stair Training: Handrails/: 2 handrails Stairs (FIM): 6 #of Steps: 12 1 Step (curb) (QC): 6 4 Steps (QC): 6 12 Steps (QC): 6 Stairs: Pattern: Step to Level of Assist: 6 Exercises Supine Ex: Bridging, Ankle pumps, Pelvic tilt, Quad Set, Rolling, Glut sets, Lower trunk rotation (gentle limited), Heel Slides, Short Arc Quads, Scooting, Straight leg raise, Hip abd/add Supine Reps: 15 Treatments core in supine for activation and mini crunch ax 10 Assessment Current Status: Excellent Progress meets goals, motivated PT Short Term Goals Short Term Goals Time Frame: Mar 13, 2017 Gait (FIM): 6 Distance (FIM): 3=150 ft Gait Distance Comment: 300' Gait Level of Assist: 6 Gait Assistive Device: FWW Stairs (FIM): 5 # of Steps: 12 Stairs Level of Assist: 5 PT Custodial Goals Custodial Goals PT Custodial Goals Time Frame: Mar 20, 2017 Transfers (B,C,W/C) (FIM): 6 Sit to Lying (QC): 6 Lying-Sitting on Side/Bed(QC): 6 Sit to Stand (QC): 6 Rollin Roll Left to Right (QC): 6 Chair/Awb-rd-Asxnw Xfer(QC): 6 Car Transfer (QC): 6 Does the Patient Walk: Yes Gait (FIM): 6 Distance: 500' Walk 10 feet (QC): 6 Walk 10ft-Uneven Surface(QC): 6 Walk 50ft with 2 Turns (QC): 6 Walk 150 ft (QC): 6 Gait Level of Assist: 6 Gait Assistive Device: FWW Stairs (FIM): 6 # of Steps: 12 1 Step (curb) (QC): 6 4 Steps (QC): 6 12 Steps (QC): 6 Stairs Level Of Assist: 6 Picking up an Object (QC): 6 PT Plan Treatment/Plan Treatment Plan: Discontinue PT, goals met Treatment Plan: Bed Mobility, Concurrent Therapy, Education, Functional Activity Timmy, Functional Strength, Group Therapy, Gait, Safety, Therapeutic Exercise, Transfers Treatment Duration: Mar 27, 2017 Frequency: At least 5 of 7 days/Wk (IRF) Estimated Hrs Per Day: 1.5 hours per day Patient and/or Family Agrees t: Yes Safety Risks/Education Patient Education: Gait Training, Transfer Techniques, Steps, Reviewed Precautions, Correct Positioning, Disease Process, Safety Issues Teaching Recipient: Patient Teaching Methods: Demonstration, Discussion Response to Teaching: Verbalize Understanding, Return Demonstration, Reinforcement Needed discussed getting in out of high car/truck as well as driving . Pt. states he will wait to drive. states he will have hosp bed at home as well as ramp in to house Discharge Recommendations Therapy D/C Recommendations: Home w/ Family Support Time/GCodes Time In: 1030 Time Out: 1145 Total Billed Treatment Time: 75 Total Billed Treatment 1,EX30m,FA25m,GT20 G Codes Necessary: CYNTHIA Carvalho [employer] Mar 08, 2017 12:13
--- NOTE | 2017-03-08 12:23 | Occupational Ther Daily Note ---
OT Current Status-Daily Note Subjective Pt seen in room, up at EOB, agreeable to PT. pain not mentioned. Appearance Alert, cooperative Mental Status/Objective Functional [place] Measure 0=Not Assessed/NA 4=Minimal Assistance 1=Total Assistance 5=Supervision or Setup 2=Maximal Assistance 6=Modified [place] 3=Moderate Assistance 7=Complete [place] ADL-Treatment Functional [place] Measure 0=Not Assessed/NA 4=Minimal Assistance 1=Total Assistance 5=Supervision or Setup 2=Maximal Assistance 6=Modified [place] 3=Moderate Assistance 7=Complete IndependenceIRFPAI Quality Coding Scale 6 Independent with activity with or without an assistive device 5 Patient requires set up or clean up by helper. Patient completes activity by themselves 4 Supervision or touching assist (CGA). [place] provide cues , steadying assist 3 The helper provides less than half the effort to complete the activity 2 The helper provides more than half the effort to complete the activity 1 Dependent. The helper does all the effort to complete an activity 7 Patient refused to complete or attempt activity 9 The patient did not perform the activity before the current illness or injury 88 Not attempted due to Medical conditions or safety concerns Eating (FIM): 6 (No difficulties cutting food or feeding himself. Has dentures that he wears all the time) Eating (QC): 6 Grooming (FIM): 6 (Stood at sink to clean teeth and brush hair. Washed face and hands in the shower. Chooses not to shave today. FWW for balance at sink) Oral Hygiene (QC): 6 Bathing (FIM): 6 (Washed and dried all parts. Retrieved towel from bar and turned water on and off. Shower bench, grab bars, hand held shower. Safe standing to wash and dry bottom) Shower/Bathe Self (QC): 6 Upper Body (FIM): 6 (Doffed and donned clothing, getting clean clothes out and putting dirty ones away. FWW for balance when standing. ) Upper Body Dressing (QC): 6 Lower Body Dressing (FIM): 6 (Doffed and donned pants, underwear, socks and shoes. Retrieved clean clothes and put dirty ones away. FWW for balance when standing) Lower Body Dressing (QC): 6 On/Off Footwear (QC): 6 Toileting (FIM): 6 (managed clothing and hygiene without help. BSC over toilet , grab bars, FWW for balance) Toileting Hygiene (QC): 6 Toilet/Commode Transfer (FIM): 6 (On and off BSC over toilet, FWW, grab bars) Toilet Transfer (QC): 6 Shower Transfer(FIM): 6 (On and off shower bench, grab bars, FWW) Other Treatment Pt walked to gym with FWW without assistance and with no LOB. Pt did 10 minutes bilat UE exercise on arm bike, set at 35 to 40W resistance (increased time, increased resistance) - to strengthen arms for weight bearing with FWW. Pt reported that he feels prepared for discharge tomorrow. No continued OT recommended. Pt returned to room, all needs met. OT Short Term Goals Short Term Goals 1=Demonstrate adherence to instructed precautions during ADL tasks. 2=Patient will verbalize/demonstrate understanding of assistive devices/ modifications for ADL. 3=Patient will improve strength/tolerance for activity to enable patient to perform ADL's. OT Snf Goals Snf Goals Time Frame: Mar 14, 2017 Eating (FIM): 6 (met 03-08-17) Eating (QC): 6 (met 03-08-17) Groomin (met 03-08-) Oral Hygiene (QC): 6 (met 03-08-) Bathing(FIM): 6 (met 03-08-) Shower/Bathe Self (QC): 6 (met 03-08-) Upper Body Dressing(FIM): 6 (met 03-08-17) Upper Body Dressing (QC): 6 (met 03-08-17) Lower Body Dressing(FIM): 6 (met 03-08-17) Lower Body Dressing (QC): 6 (met 03-08-17) On/Off Footwear (QC): 6 (met 03-08-17) Toileting(FIM): 6 (met 03-08-17) Toileting Hygiene (QC): 6 (met 03-08-17) Toilet/Commode Transfer(FIM): 6 (met 03-08-17) Toilet/Commode Transfer (QC): 6 (met 03-08-17) Shower Transfer(FIM): 6 (met 03-08-17) Additional Goals: 1-Demonstrate ADL Tasks, 2-Verbalize Understanding, 3- ImproveStrength/Timmy 1=Demonstrate adherence to instructed precautions during ADL tasks. 2=Patient will verbalize/demonstrate understanding of assistive devices/ modifications for ADL. 3=Patient will improve strength/tolerance for activity to enable patient to perform ADL's. OT Education/Plan Problem List/Assessment Pt would benefit from skilled OT to increase his independence in basic self care to allow him to safely return to his home to live alone Discharge Recommendations Plan/Recommendations: Discharge/Goals Met (see tx plan for goals met) Treatment Plan/Plan of Care Patient would benefit from OT for education, treatment and training to promote independence in ADL's, mobility, safety and/or upper extremity function for ADL' s. Plan of Care: ADL Retraining, Concurrent Therapy, Functional Mobility, Group Exercise/Act as Ind, UE Funct Exercise/Act Treatment Duration: Mar 27, 2017 Frequency: 5 times per week Estimated Hrs Per Day: 1.5 hours per day Agreement: Yes Rehab Potential: Good Time/GCodes Start Time: 08:35 Stop Time: 09:35 Total Time Billed (hr/min): 60 Billed Treatment Time visit, 45 minutes ADL, 15 minutes exercise ZULAY MARAVILLA OT Mar 08, 2017 12:23
--- NOTE | 2017-03-08 12:38 | Therapy Team Discharge Summary ---
Therapy Discharge Summary Discharge Recommendations Date of Discharge March 09, 2017 Therapy D/C Recommendations: Home w/ Family Support Occupational Therapy Pt was referred for skilled OT to increase his independence in basic self care to allow him to safely return home to live alone after injury with fx pelvis. On admission he needed CGA for shower transfer, SBA for lower body dressing and toileting/toilet transfers, and setup for bathing, grooming and upper body dressing. By discharge he was mod I for all basic ADLs, using BSC over toilet, grab bars, shower bench, hand held shower, FWW. Pt met all goals. Discharge with no continued OT recommended. Decreased Activ Tolerance, Dependent Transfers, Impaired Bed Mobility, Impaired Coordination, Impaired Funct Balance, Impaired I ADL's, Impaired Self-Care Skills PT Halfway Goals Project Architect Goals PT Halfway Goals Time Frame: Mar 20, 2017 Transfers (B,C,W/C) (FIM): 6 Roll Left to Right (QC): 6 Sit to Lying (QC): 6 Lying-Sitting on Side/Bed(QC): 6 Sit to Stand (QC): 6 Chair/Wci-hw-Dvrls Xfer(QC): 6 Car Transfer (QC): 6 Does the Patient Walk: Yes Gait (FIM): 6 Distance: 500' Walk 10 feet (QC): 6 Walk 10ft-Uneven Surface(QC): 6 Walk 50ft with 2 Turns (QC): 6 Walk 150 ft (QC): 6 Gait Level of Assist: 6 Gait Assistive Device: FWW Stairs (FIM): 6 # of Steps: 12 1 Step (curb) (QC): 6 4 Steps (QC): 6 12 Steps (QC): 6 Stairs Level Of Assist: 6 Picking up an Object (QC): 6 OT Project Architect Goals Project Architect Goals Time Frame: Mar 14, 2017 Eating (FIM): 6 (met -30-17) Eating (QC): 6 (met -30-17) Oral Hygiene (QC): 6 (met -30-17) Grooming(FIM): 6 (met -30-17) Bathing(FIM): 6 (met -30-17) Shower/Bathe Self (QC): 6 (met -30-17) Upper Body Dressing(FIM): 6 (met -30-17) Upper Body Dressing (QC): 6 (met 03-08-17) Lower Body Dressing(FIM): 6 (met 03-08-17) Lower Body Dressing (QC): 6 (met 03-08-17) On/Off Footwear (QC): 6 (met 03-08-17) Toileting(FIM): 6 (met 03-08-17) Toileting Hygiene (QC): 6 (met 03-08-17) Toilet/Commode Transfer(FIM): 6 (met 03-08-17) Toilet/Commode Transfer (QC): 6 (met 03-08-17) Shower Transfer(FIM): 6 (met 03-08-17) Additional Goals: 1-Demonstrate ADL Tasks, 2-Verbalize Understanding, 3- ImproveStrength/Timmy 1=Demonstrate adherence to instructed precautions during ADL tasks. 2=Patient will verbalize/demonstrate understanding of assistive devices/ modifications for ADL. 3=Patient will improve strength/tolerance for activity to enable patient to perform ADL's. ZULAY MARAVILLA OT Mar 08, 2017 12:38
[2017-03-08 18:29] VITALS: BP 128/74
[2017-03-09 05:00] VITALS: BP 121/72
[2017-03-09] MEDS: RIVAROXABAN 15 MG TABLET (XARELTO) PO SCH (06:22)
[2017-03-09] MEDS ORDERED: INFLUENZA TRIvalent 2017-2018 0.5 ML/45 MCG SYR IM ONE (07:30)
[2017-03-09] MEDS: NICOTINE 21 MG (NICODERM) PATCH TD SCH (09:06)
[2017-03-09] MEDS: NICOTINE PATCH REMOVAL TP SCH (09:06)
[2017-03-09] MEDS: ENALAPRIL 10 MG (VASOTEC) TAB PO SCH (09:06)
[2017-03-09 10:50] VITALS: BP 121/72
--- NOTE | 2017-03-10 08:23 | Therapy Team Discharge Summary ---
Therapy Discharge Summary Discharge Recommendations Date of Discharge Mar 09, 2017 at 10:55 Therapy D/C Recommendations: Home w/ Family Support Physical Therapy Patient came to rehab following a pelvic fracture. Upon admission patient performed bed mobility and transfers with SBA, ambulated 150' with a rolling walker with CGA, and could go up and down 4 steps using 1 handrail with CGA. Patient has been performing bed mobility and transfer training, balance and endurance training, functional strengthening, stair training, gait training, and education. Patient has made good progress and has met all of his halfway goals. Now, patient performs bed mobility and transfers with mod I, ambulates at least 400' with a rolling walker with mod I (including 50' with at least 2 turns of 90 degrees and 10' over an uneven surface), and can go up and down 12 steps using 2 handrails with mod I. Patient has been discharged from this facility and will be discharged from PT at this time. Occupational Therapy Decreased Activ Tolerance, Dependent Transfers, Impaired Bed Mobility, Impaired Coordination, Impaired Funct Balance, Impaired I ADL's, Impaired Self-Care Skills PT Prison Goals Personnel Records Clerk Goals PT Personnel Records Clerk Goals Time Frame: Mar 20, 2017 Transfers (B,C,W/C) (FIM): 6 Roll Left to Right (QC): 6 Sit to Lying (QC): 6 Lying-Sitting on Side/Bed(QC): 6 Sit to Stand (QC): 6 Chair/Vdb-fb-Whmxv Xfer(QC): 6 Car Transfer (QC): 6 Does the Patient Walk: Yes Gait (FIM): 6 Distance: 500' Walk 10 feet (QC): 6 Walk 10ft-Uneven Surface(QC): 6 Walk 50ft with 2 Turns (QC): 6 Walk 150 ft (QC): 6 Gait Level of Assist: 6 Gait Assistive Device: FWW Stairs (FIM): 6 # of Steps: 12 1 Step (curb) (QC): 6 4 Steps (QC): 6 12 Steps (QC): 6 Stairs Level Of Assist: 6 Picking up an Object (QC): 6 OT Personnel Records Clerk Goals Prison Goals Time Frame: Mar 14, 2017 Eating (FIM): 6 (met 03-08-17) Eating (QC): 6 (met 03-08-17) Oral Hygiene (QC): 6 (met 9-30-17) Grooming(FIM): 6 (met 03-08-17) Bathing(FIM): 6 (met 03-08-17) Shower/Bathe Self (QC): 6 (met 03-08-17) Upper Body Dressing(FIM): 6 (met 03-08-17) Upper Body Dressing (QC): 6 (met 03-08-17) Lower Body Dressing(FIM): 6 (met 03-08-17) Lower Body Dressing (QC): 6 (met 03-08-17) On/Off Footwear (QC): 6 (met 03-08-17) Toileting(FIM): 6 (met 03-08-17) Toileting Hygiene (QC): 6 (met 03-08-17) Toilet/Commode Transfer(FIM): 6 (met 03-08-17) Toilet/Commode Transfer (QC): 6 (met 03-08-17) Shower Transfer(FIM): 6 (met 03-08-17) Additional Goals: 1-Demonstrate ADL Tasks, 2-Verbalize Understanding, 3- ImproveStrength/Timmy 1=Demonstrate adherence to instructed precautions during ADL tasks. 2=Patient will verbalize/demonstrate understanding of assistive devices/ modifications for ADL. 3=Patient will improve strength/tolerance for activity to enable patient to perform ADL's. FRANKY BLAIR PT Mar 10, 2017 08:23
== END 2017-03-09 10:55 | disposition home or self-care (01) | DRG 536 ==
PROVIDERS: ADMIT Physical Medicine & Rehabilitation; ATTEND Physical Medicine & Rehabilitation
DX: S32.82XA Multiple fractures of pelvis without disruption of pelvic ring, initial encounter for closed fracture (principal); I10 Essential (primary) hypertension; I82.4Z1 Acute embolism and thrombosis of unspecified deep veins of right distal lower extremity; R07.89 Other chest pain; F17.210 Nicotine dependence, cigarettes, uncomplicated; W55.29XA Other contact with cow, initial encounter
CPT/HCPCS: 36415; 80053; 85025

== ENCOUNTER 2017-03-26 05:36 | Outpatient (CLI) | payer OTHER ==
[~2017-03-26] VITALS: Ht 198.1 cm; Wt 90.0 kg
[~2017-03-26 05:36] MED LIST: ACET-77 PO; ENAL20TA PO; NCT21TD TD; RIVA15TA PO
== END 2017-03-26 09:52 ==
LOC: PREOP 05:36
PROVIDERS: ATTEND Surgery
DX: Z01.818 Encounter for other preprocedural examination (principal); K21.9 Gastro-esophageal reflux disease without esophagitis; R93.3 Abnormal findings on diagnostic imaging of other parts of digestive tract

== ENCOUNTER 2017-03-27 10:50 | Day surgery (SDC) | payer OTHER, BC ==
[~2017-03-27] VITALS: Ht 198.1 cm; Wt 90.0 kg
--- OUTSIDE RECORDS SUMMARY | 2017-03-27 10:56 | XMS REPORT | Continuity of Care Document ---
Author Author [facility] Address Unknown Phone Unavailable Allergies Medications Problems Date Dx Coded Attending Type Code Diagnosis Diagnosed By 06/24/2013 KATELYN NEWELL MD V70.5 PREEMPLOYMENT/PRESCHOOL EXAM Procedures Code [place] [address] UA LONG DIP 06/24 Results Encounters ACCT No. Visit Date/Time Discharge Status Pt. Type Provider Facility Loc./Unit Complaint [id number] 06/24/2013 08:28:00 06/24/2013 23: 59:59 CLS Outpatient KATELYN NEWELL MD
[2017-03-27 11:27] VITALS: BP 123/78
[2017-03-27] MEDS ORDERED: HURRICAINE EXT TUBE (BENZOCAINE) XX PRN (11:45)
[2017-03-27] MEDS ORDERED: NS IV 500 ML 500 ML IV SCH (11:45)
[2017-03-27] MEDS ORDERED: fentaNYL INJECTION 100 MCG/2 ML AMP ONE (12:19)
[2017-03-27] MEDS ORDERED: HURRICAINE EXT TUBE (BENZOCAINE) ONE (12:20)
[2017-03-27] MEDS ORDERED: MIDAZOLAM 2 MG/2 ML (VERSED) VIAL ONE ×4 (12:20)
[2017-03-27] MEDS: fentaNYL INJECTION 100 MCG/2 ML AMP IVP PRN ×2 (12:25→12:29)
[2017-03-27] MEDS: MIDAZOLAM 2 MG/2 ML (VERSED) VIAL IVP PRN ×2 (12:27→12:32)
--- NOTE | 2017-03-27 12:31 | Conscious Sedation/ASA ---
Conscious Sedation Pre-Proced Time Reviewed: 12:31 ASA Class: 2 Airway Mallampati Classification: ([place] appropriate class) I. II. III, IV Lungs Heart ASA score ASA 1: a normal healthy patient ASA 2: a patient with a mild systemic disease (mid diabetes, controlled hypertension, obesity ASA 3: a patient with a severe systemic disease that limits activity (angina , COPD, prior Myocardial infarction) ASA 4: a patient with an incapacitating disease that is a constant threat to life (CHF, renal failure) ASA 5: a moribund patient not expected to survive 24 hrs. (ruptured aneurysm) ASA 6: a declared brain patient whose organs are being harvested. For emergent operations, add the letter E after the classification Grade 1 Sedation Plan: Discussed options with patient/fam Note The patient is an appropriate candidate to undergo the planned procedure, sedation, and anesthesia. The patient immediately re-assessed prior to indication. DC JOSEPH MD Mar 27, 2017 12:31 pm
--- NOTE | 2017-03-27 12:31 | History & Physicial ---
History of Present Illness History of Present Illness Reason for visit/HPI to undergo an endoscopic assessment of an abnormal esophagus identified on his chest CT, as part of a trauma evaluation from a blunt injury quite recently. Date of Admission Date Seen by Provider: Mar 27, 2017 Time Seen by Provider: 12:30 I consulted on this patient on 03/27/17 12:29 Attending Physician Dc Joseph MD Admitting Physician No,Local Physician Consult Allergies and Home Medications Allergies Coded Allergies: No Known Drug Allergies (Unverified , 03/26/17) Home Medications Enalapril Maleate 20 Mg Tablet, 20 MG PO DAILY, (Reported) Rivaroxaban 15 Mg Tablet, 15 MG PO BID WITH MEALS for 30 Days, #60 Prescribed by: DYLAN OVERTON on 03/08/17 1010 Past Thgbrhk-Qcoimn-Aoocek Hx Patient Social History Marrital Status: single Employed/Student: employed Alcohol Use: Denies Use Recreational Drug Use: No Smoking Status: Current Everyday Smoker Former Smoker, Quit: Feb 28, 2017 Type Used: Cigarettes Recent Foreign Travel: No Contact w/other who traveled: No Recent Hopitalizations: Yes (TRANSFER FROM [facility]) Seasonal Allergies Seasonal Allergies: No Surgeries Yes (BILATERAL CATARACTS REMOVED, RIGHT EYE GLAUCOMA REMOVED) Respiratory No Cardiovascular Yes Hypertension Neurological No Reproductive System Hx Reproductive Disorders: No Sexually Transmitted Disease: No HIV/AIDS: No Genitourinary No Gastrointestinal No Musculoskeletal No Endocrine History of Endocrine Disorders: No HEENT History of HEENT Disorders: Yes (BILAT CATARACT REMOVAL, RIGHT EYE GLAUCOMA LASER SX) HEENT Disorders: Cataract Hearing Impairment: Hard of Hearing Cancer No Psychosocial History of Psychiatric Problem: No Integumentary History of Skin or Integumenta: No Blood Transfusions History of Blood Disorders: No Adverse Reaction to a Blood Tr: No Family Medical History Family Hx: Cardiovascular disease 19 FATHER Diabetes mellitus 19 MOTHER Severe allergy G8 SISTER Constitutional: no symptoms reported EENTM: no symptoms reported Cardiovascular: no symptoms reported Gastrointestinal: no symptoms reported Genitourinary: no symptoms reported Musculoskeletal: joint pain Skin: no symptoms reported Psychiatric/Neurological: No Symptoms Reported Physical Exam Vital Signs Vital Sign - Last 12Hours 03/27/17 11:27 Temp 96.8 Pulse 56 Resp 18 B/P (MAP) 123/78 Pulse Ox 96 O2 Delivery Room Air Capillary Refill : General Appearance: No Apparent Distress Neck: Normal Inspection Cardiovascular: Regular Rate, Rhythm Gastrointestinal: Non Tender, Soft Extremity: Other Skin: Warm/Dry Comments discomfort over the right pelvis from recent surgery and trauma Assessment/Plan Assessment and Plan gentleman with thickened esophagus found on a CT of the chest during a blunt trauma evaluation. For upper endoscopy. Problems: DC JOSEPH MD Mar 27, 2017 12:31 pm
--- NOTE | 2017-03-27 12:57 | Endo Procedure Record ---
Endo Procedure Report Date of Procedure Mar 27, 2017 Surgeon (s) DC JOSEPH MD Post Procedure/Op Diagnosis Grade 1 esophagitis Procedure Performed Upper GI endoscopy Description of Procedure Anesthesia Type: Conscious Sedation Specimen(s) collected/removed none Description of the Procedure Indication for procedure: This gentleman was found to have thickening and some irregularity of the esophagus on a CT of the chest performed as part of trauma evaluation and month ago. He sustained injuries from a wild cow and required orthopedic intervention. To evaluate the abnormality, an upper endoscopy was felt to be reasonable. Description of the procedure: He was placed in left lateral decubitus position and his vital signs where monitored. Conscious sedation was achieved using Versed and fentanyl. The flexible gastroscope was introduced down the esophagus , past the stomach, into the proximal duodenum. Findings: Esophagus: Mild esophagitis possibly of grade 1 variety without any other mucosal abnormalities. Stomach and duodenum where normal. He tolerated the procedure well and was taken back to the nursing area in a stable condition. Impression: Abnormal CT with thickening of the esophagus. No concerning mucosal lesions identified except Mild esophagitis. Recommend proton pump inhibitors. DC JOSEPH MD Mar 27, 2017 12:57 pm
--- NOTE | 2017-03-27 12:58 | Discharge Inst-Simple/Standard ---
Discharge Inst-Standard Discharge Medications New, Converted or Re-Newed RX: Other Patient Instructions/Follow Up Plan of Care/Instructions/FU: May use Prilosec 20 mg [id number] Activity as Tolerated: Yes Discharge Diet: No Restrictions DC JOSEPH MD Mar 27, 2017 12:58 pm
[2017-03-27 13:20] VITALS: BP 132/77
[2017-03-27 13:50] VITALS: BP 124/78
[2017-03-27 14:00] VITALS: BP 124/78
== END 2017-03-27 14:05 | disposition home or self-care (01) ==
LOC: ENDO 10:50
PROVIDERS: ATTEND Surgery
DX: K20.9 Esophagitis, unspecified (principal); F17.210 Nicotine dependence, cigarettes, uncomplicated; I10 Essential (primary) hypertension